=== PATIENT | male | born 1940 | race Caucasian/White ===

== ENCOUNTER 2018-09-02 16:19 | Inpatient (IN) | payer MEDICARE, BC ==
[~2018-09-02] VITALS: Ht 175.3 cm; Wt 81.9 kg
[2018-10-19] VITALS (12 sets, daily range): BP systolic 80–149; BP diastolic 40–86; PULSE 59–99; TEMP 97.6–98.7
[2018-10-19] MEDS ORDERED: PRAVACHOL 40MG40 MG PO (03:47)
[2018-10-19] MEDS ORDERED: HYGROTON 2525 MG/TAB PO (03:47)
[2018-10-19] MEDS ORDERED: PRINIVIL40 MG PO (03:47)
[2018-10-19] MEDS ORDERED: VITAMIN C500 MG PO (05:44)
[2018-10-19] MEDS ORDERED: NATURAL IRON65 MG PO (05:45)
[2018-10-19] MEDS ORDERED: FOLIC ACID 40400 MCG PO (05:46)
--- NOTE | 2018-10-19 10:30 | NUR ---
returned to room from PACU per bed, awake and alert, IV infusing and placed on pump at 100ml/hr, O2 on at 2L/NC, O2 sat 97%, rolled to side and no wrinkles in linens or wires under patient, has full sensation to bilateral lower extremities and is able to do ankle pumps, occlusive dressing to right hip CD&I, full assessment completed, see interventions for further info, denies needs, family at bedside
--- NOTE | 2018-10-19 10:45 | NUR ---
given sips of water and tolerates well
--- NOTE | 2018-10-19 11:15 | NUR ---
visits with family between checks, offered full liquids and declines at this time, will inform nurse when he is ready
--- NOTE | 2018-10-19 11:45 | NUR ---
is ready to order something to eat, instructed on ordering regular food and verbalizes understanding
--- NOTE | 2018-10-19 12:15 | NUR ---
continues to visit with family and deny needs
--- NOTE | 2018-10-19 13:15 | NUR ---
resting in bed, denies needs,
--- NOTE | 2018-10-19 14:15 | NUR ---
resting in bed, has ordered something to eat
--- NOTE | 2018-10-19 14:35 | NUR ---
SW met with the patient to discuss discharge plan. The patient lives in [place] with his , Shruthi. He reports independence with ADLs and has a cane and walker. The patient's PCP is Dr. Mann in [place] and he receives his medications at [facility]. He reports no difficulties obtaining his meds. The patient does not have advanced directives in EMR, but he states that he does have them completed. He states that his is his DPOA-HC. The patient plans to return home with his and receive outpatient therapy at [facility] upon discharge. No additional needs at this time.
--- NOTE | 2018-10-19 15:27 | NUR ---
repositioned in bed for comfort and to eat lunch
--- NOTE | 2018-10-19 16:02 | NUR ---
Dr Avila was in to see patient
--- NOTE | 2018-10-19 16:24 | NUR ---
resting in bed, c/o minor pain, medicated with scheduled tylenol, denies need for anything more than this at this time
--- NOTE | 2018-10-19 17:45 | NUR ---
appears to be dozing, in bed with eyes closed, resp quiet and easy
--- NOTE | 2018-10-19 18:20 | NUR ---
c/o pain to right hip and knee, pillow placed under right leg, states this helps but also medicated with roxicodone 5mg
--- NOTE | 2018-10-19 19:06 | NUR ---
edside shift report given to LUIS FERNANDO Rice
--- NOTE | 2018-10-19 20:45 | NUR ---
Pt. laying in bed watching TV at this time. Pt. is A&OX3, assessment complete. IV to lt. wrist patent, IV fluids infusing per orders. Pt. reports pain at a 4 on pain scale at this time. Dressing to rt. hip CDI. Pt. denies further needs at this time.
[2018-10-20 04:00] VITALS: BP 116/40; PULSE 90; TEMP 99.7
--- NOTE | 2018-10-20 06:09 | NUR ---
Pt. slept well through the night. Pt. remains A&OX3. INT to lt. forearm patent. Pt. reports mild pain with movement. Pt. denies need for pain meds at this time. Pt. denies further needs, call light within reach.
--- NOTE | 2018-10-20 06:40 | NUR ---
awake resting in bed, bedside shift report received from LUIS FERNANDO Rice
--- NOTE | 2018-10-20 07:00 | NUR ---
Dr Avila in to see patient, full assessment completed, see interventions for further info, denies needs at this time, will order breakfast
[2018-10-20 07:09] LABS: HEMOGLOBIN 12.2 g/dl (13.5-18.0)
[2018-10-20 07:16] LABS: HEMATOCRIT 35.3 % (42.0-52.0)
--- NOTE | 2018-10-20 08:07 | NUR ---
sitting up in bed eating breakfast
--- NOTE | 2018-10-20 08:40 | NUR ---
had breakfast and tolerated well, offered pain pill before therapy but declines at this time, will notify nurse if he feels he needs it later
[2018-10-20 08:59] VITALS: BP 114/50; PULSE 91; TEMP 99
--- NOTE | 2018-10-20 09:36 | NUR ---
physical therapy in and worked with patient and he ambulated in levine with steady gait, now occupational therapy in and visiting with the patient
--- NOTE | 2018-10-20 10:11 | NUR ---
Initial visit; Patient thanked Technical Support Consultant for looking in on him and offering God's blessings.
--- NOTE | 2018-10-20 10:51 | NUR ---
appears to be dozing in chair, awakened and puri cath discontinued
--- NOTE | 2018-10-20 12:25 | NUR ---
sitting up on side of bed visiting with family, c/o some pain but is declining pain meds at this time
[2018-10-20 13:00] VITALS: BP 119/79; PULSE 83; TEMP 98.4
--- NOTE | 2018-10-20 13:17 | NUR ---
ambulated out to levine with physical therapy for group exercises
--- NOTE | 2018-10-20 13:50 | NUR ---
ambulated back to room after therapy, into bed, occlusive dressing removed, incision wiht steri strips and incision CD&I, covered with aquacel dressing
--- NOTE | 2018-10-20 15:44 | NUR ---
entered room and patient sitting on side of bed, states he forgot to call and was up to bathroom independently, was concerned because after quesitoning him he had not used his walker, talked with him about the importance of using his walker even for very short distances and verbalizes understanding
--- NOTE | 2018-10-20 16:26 | NUR ---
appears to be sleeping, in bed with lights off, eyes closed, resp quiet and easy
[2018-10-20 17:10] VITALS: BP 100/55; PULSE 103; TEMP 98.5
--- NOTE | 2018-10-20 17:26 | NUR ---
awake now and resting in bed looking at computer, states pain pill helped with the pain
--- NOTE | 2018-10-20 18:52 | NUR ---
bedside shift report given to LUIS FERNANDO Seals
[2018-10-20 20:00] VITALS: BP 113/58; PULSE 93; TEMP 98.3
--- NOTE | 2018-10-20 20:00 | NUR ---
Report received. Assumed care for social services aide. Assessment complete. VS stable. 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 Aquacell to right hip C/D/I. Voiding without difficulty. Denies need for pain medication. Fresh ice pack applied to right hip. Plan of care discussed for DC tomorrow. Verbalizes understanding and denies concerns. Encouraged to call for questions or concerns. Verbalizes understanding. Will monitor.
[2018-10-21 00:47] VITALS: BP 122/66; PULSE 91; TEMP 98.7
--- NOTE | 2018-10-21 04:00 | NUR ---
Called to have SCDs removed so could ambulate to bathroom. Up without difficulty-using walker. Voided without difficulty. Rating pain 2/10 to right hip/thigh. Denies need for intervention. States he will call if pain increases. Back to bed with fresh ice pack applied. Aquacell dressing C/D/I Call light within reach. WIll monitor.
[2018-10-21 04:45] VITALS: BP 118/64; PULSE 86; TEMP 98.3
--- NOTE | 2018-10-21 08:00 | NUR ---
PATIENT IS A&O. VSS. RATES PAIN IN RLE AT 5/10. GAVE PRN NORCO, TWO TABS BEFORE AM THERAPY. RTH DRESSING IS CD&I WITH AQUACEL. TEDS TO BLE. POSITIVE PEDAL PULSES TO BLE. PATIENT EAT/DRINK/VOIDING SUFFICENT AMOUNTS. NO C/O N/V. DC'D IV FOR PENDING DISCHARGE LATER TODAY. HEAD TO TOE ASSESSMENT WNL. BREAKFAST TRAY AT BEDSIDE. AM MEDS GIVEN. NO OTHER NEEDS. CALL LIGHT IN REACH.
[2018-10-21 08:07] LABS: HEMOGLOBIN 12.4 g/dl (13.5-18.0)
[2018-10-21 08:09] LABS: HEMATOCRIT 35.8 % (42.0-52.0)
--- NOTE | 2018-10-21 09:31 | NUR ---
Follow-up visit; Patient appeared to enjoy [facility] Winder visit.
[2018-10-21] MEDS ORDERED: ASPI325T6 PO (10:46)
[2018-10-21] MEDS ORDERED: CELEBREX 200MG200 MG PO (10:47)
[2018-10-21] MEDS ORDERED: NORCO 325 MG-7.1 TAB PO (10:47)
[2018-10-21] MEDS ORDERED: SENNA-S 50 MG-81 TAB PO (10:47)
[2018-10-21 10:55] VITALS: BP 98/55; PULSE 104; TEMP 97.6
--- NOTE | 2018-10-21 13:50 | NUR ---
PATIENT DISCHARGING HOME VIA WHEELCHAIR TO PERSONAL VEHICLE WITH . GAVE DISCHARGE INSTRUCTIONS, PRESCRIPTIONS AND FOLLOW UP APTS. ANSWERED ALL QUESTIONS/CONCERNS. SENT HOME PERSONAL BELONGINGS. PATIENT DISCHARGED.
== END 2018-10-21 13:50 | disposition home or self-care (01) | DRG 470 ==
LOC: SURG 10-19 05:11 → JCC 10-19 07:30
PROVIDERS: ADMIT Orthopaedic Surgery
PROC: 0SR90JA Replacement of Right Hip Joint with Synthetic Substitute, Uncemented, Open Approach (ICD-10-PCS; principal; 2018-10-19 07:30)
DX: M16.11 Unilateral primary osteoarthritis, right hip (principal); I10 Essential (primary) hypertension; E78.00 Pure hypercholesterolemia, unspecified
CPT/HCPCS: A4314; A9284; C1713; C1776; J0690; J2250; J2370; J2704; J3010; J7120

== ENCOUNTER → 2018-10-08 | Outpatient (CLI) | payer MEDICARE, BC | LOC: COL.LAB 10:26 | DX: Z01.812 Encounter for preprocedural laboratory examination (principal); Z86.14 Personal history of Methicillin resistant Staphylococcus aureus infection ==